=== PATIENT | male | born 1970 | race Hispanic/Latino ===

== ENCOUNTER → 2025-09-07 | Outpatient (CLI) | payer SELFPAY ==
[~2025-09-07] MED LIST: ATOR10 PO; FERR324T4 PO; LIDOCAINE HCL 4% LTA SOL 4 ML VIAL TP ONE; LISI10TA24 PO; METF-444 PO
== END | disposition home or self-care (01) ==
LOC: WHH 10:14
PROVIDERS: ATTEND Family Medicine
DX: S81.802A Unspecified open wound, left lower leg, initial encounter (principal); L02.811 Cutaneous abscess of head [any part, except face]; E11.622 Type 2 diabetes mellitus with other skin ulcer; L98.46 Non-pressure chronic ulcer of face; L97.222 Non-pressure chronic ulcer of left calf with fat layer exposed; I10 Essential (primary) hypertension; E78.5 Hyperlipidemia, unspecified; Z87.891 Personal history of nicotine dependence; X58.XXXA Exposure to other specified factors, initial encounter; Y93.89 Activity, other specified; Y92.89 Other specified places as the place of occurrence of the external cause; Y99.8 Other external cause status
CPT/HCPCS: 87070; 99215